=== PATIENT | female | born 1965 | race Caucasian/White ===

== ENCOUNTER → 2020-10-25 | Outpatient (CLI) | payer OTHER | LOC: KOH-I 15:38 | DX: M54.6 Pain in thoracic spine (principal); M54.2 Cervicalgia; M54.5 Low back pain; M47.812 Spondylosis without myelopathy or radiculopathy, cervical region; M47.816 Spondylosis without myelopathy or radiculopathy, lumbar region | CPT/HCPCS: 72040; 72070; 72100 ==

== ENCOUNTER → 2021-03-14 | Outpatient (CLI) | payer OTHER | LOC: KOH-I 08:00 | DX: M54.9 Dorsalgia, unspecified (principal); M51.36 Other intervertebral disc degeneration, lumbar region; M51.37 Other intervertebral disc degeneration, lumbosacral region | CPT/HCPCS: 72141; 72148 ==

== ENCOUNTER → 2021-03-22 | Outpatient (CLI) | payer OTHER | LOC: KOH-I 08:30 | DX: Z01.818 Encounter for other preprocedural examination (principal); M51.24 Other intervertebral disc displacement, thoracic region; M41.34 Thoracogenic scoliosis, thoracic region; M47.12 Other spondylosis with myelopathy, cervical region; M48.02 Spinal stenosis, cervical region; M50.30 Other cervical disc degeneration, unspecified cervical region | CPT/HCPCS: 72125; 72128; 72146 ==

== ENCOUNTER → 2021-04-20 | Outpatient (CLI) | payer OTHER ==
[~2021-04-20] MED LIST: ACID CONTROLLER20 MG PO; CELEBREX200 MG PO; CELEXA40 MG PO; CLARITIN10 M2 PO; COZAAR100 MG PO; CRESTOR10 MG PO; LEVOTHYROXINE50 MC1 PO; LOPRESSOR50 MG PO; VITAMIN C1000 MG PO; VITAMIN D325 MC6 PO
[2021-04-20 09:31] LABS: HEMOGLOBIN 15.3 gm/dl (12.3-15.3); RED BLOOD COUNT 4.91 M/UL (4.00-5.10); WHITE BLOOD COUNT 11.2 K/UL (4.5-11.0)
[2021-04-20 10:07] LABS: BUN/CREATININE RATIO 17 (0-10)
== END ==
LOC: OPSV2 08:30 → EDSTATUS 08:30 → OPSV2 08:42
PROVIDERS: Orthopaedic Surgery
DX: Z01.818 Encounter for other preprocedural examination (principal)
CPT/HCPCS: 36415; 71046; 80048; 81001; 83036; 85027; 85610; 85730; 87081; 87086; 93005

== ENCOUNTER 2021-05-01 05:51 | Inpatient (IN) | payer OTHER ==
[~2021-05-01] VITALS: Ht 172.7 cm; Wt 107.0 kg
[2021-05-01 19:17] LABS: HEMOGLOBIN 14.2 gm/dl (12.3-15.3); RED BLOOD COUNT 4.54 M/UL (4.00-5.10)
[2021-05-01 19:40] LABS: BUN/CREATININE RATIO 21 (0-10)
[2021-05-02 05:42] LABS: HEMOGLOBIN 13.1 gm/dl (12.3-15.3); RED BLOOD COUNT 4.29 M/UL (4.00-5.10); WHITE BLOOD COUNT 15.9 K/UL (4.5-11.0)
[2021-05-02 05:57] LABS: BUN/CREATININE RATIO 24 (0-10)
[2021-05-03 06:13] LABS: HEMOGLOBIN 12.5 gm/dl (12.3-15.3); RED BLOOD COUNT 4.02 M/UL (4.00-5.10); WHITE BLOOD COUNT 23.5 K/UL (4.5-11.0)
[2021-05-03 06:17] LABS: BUN/CREATININE RATIO 27 (0-10)
--- NOTE | 2021-05-04 00:23 | NUR ---
PT WAS UP TO BEDSIDE POTTY WITH THE HELP OF HER DAUGHTER. 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 LEFT SHOULDER, LEFT HIP AND CERVICAL SPINE XRAYS WERE ORDERED AND DONE. PT ONLY COMPLAINED OF PAIN TO LEFT SHOULDER AND LEFT HIP. VS WERE, BP 155/90, HR 69, RR 17, TEMP 97.6, O2 SAT ON RA 94%.
[2021-05-04 06:11] LABS: HEMOGLOBIN 11.8 gm/dl (12.3-15.3); RED BLOOD COUNT 3.86 M/UL (4.00-5.10); WHITE BLOOD COUNT 20.7 K/UL (4.5-11.0)
[2021-05-04 06:30] LABS: BUN/CREATININE RATIO 25 (0-10)
[2021-05-05 05:58] LABS: HEMOGLOBIN 12.5 gm/dl (12.3-15.3); RED BLOOD COUNT 3.98 M/UL (4.00-5.10)
[2021-05-05 06:00] LABS: WHITE BLOOD COUNT 14.6 K/UL (4.5-11.0)
[2021-05-05 06:17] LABS: BUN/CREATININE RATIO 20 (0-10)
== END 2021-05-06 12:54 | disposition home or self-care (01) | DRG 472 ==
LOC: OR 05:51 → CCU 17:08 → M/S 05-03 11:33 → OR 06-13 07:30
PROVIDERS: Internal Medicine; ADMIT Orthopaedic Surgery
PROC: 0RG207J Fusion of 2 or more Cervical Vertebral Joints with Autologous Tissue Substitute, Posterior Approach, Anterior Column, Open Approach (ICD-10-PCS; 2021-05-01)
PROC: 0RG407J Fusion of Cervicothoracic Vertebral Joint with Autologous Tissue Substitute, Posterior Approach, Anterior Column, Open Approach (ICD-10-PCS; 2021-05-01)
PROC: 01N10ZZ Release Cervical Nerve, Open Approach (ICD-10-PCS; principal; 2021-05-01 07:30)
DX: M50.023 Cervical disc disorder at C6-C7 level with myelopathy (principal); G95.89 Other specified diseases of spinal cord; Z20.822 Contact with and (suspected) exposure to COVID-19; M48.02 Spinal stenosis, cervical region; I10 Essential (primary) hypertension; K21.9 Gastro-esophageal reflux disease without esophagitis; E78.5 Hyperlipidemia, unspecified; E03.9 Hypothyroidism, unspecified; F17.210 Nicotine dependence, cigarettes, uncomplicated; M40.292 Other kyphosis, cervical region; M81.0 Age-related osteoporosis without current pathological fracture; F32.A Depression, unspecified; J30.9 Allergic rhinitis, unspecified; E66.9 Obesity, unspecified; R73.03 Prediabetes; M19.90 Unspecified osteoarthritis, unspecified site; M50.123 Cervical disc disorder at C6-C7 level with radiculopathy; Z88.0 Allergy status to penicillin; Z83.3 Family history of diabetes mellitus; Z82.49 Family history of ischemic heart disease and other diseases of the circulatory system; Z83.6 Family history of other diseases of the respiratory system; Z80.0 Family history of malignant neoplasm of digestive organs
CPT/HCPCS: 36415; 72040; 72050; 73030; 73502; 76000; 80048; 82962; 85025; 86850; 86900; 86901; 97110-GP-CQ; 97116-GP-CQ; 97161; 97166; 97530-GP-CQ; 97535; C1713; C1762; C1781; J0690; J1040; J1100; J1170; J2001; J2250; J2370; J2405; J2704; J3010; J3370; J7030; J7040; J7120